=== PATIENT | male | born 1930 | race African-American/Black ===

== ENCOUNTER 2018-06-03 13:11 | Emergency (ER) | payer MEDICARE ==
[2018-06-03 14:11] LABS: #Lymphocytes 1.4 thou/uL (1.20-3.40); #Monocytes 0.7 thou/uL (0.11-0.59); #Neutrophils 5.1 thou/uL (1.40-6.50); %Basophils 0.3 % (0.0-1.0); %Eosinophils 0.5 % (0.0-10.0); %Lymphocytes 18.8 % (21.0-51.0); %Monocytes 10.1 % (0.0-10.0); %Neutrophils 70.3 % (42.0-75.0); Hemoglobin 13.3 g/dL (14.0-18.0); Mean Corpuscular HGB CONC 31.4 g/dL (32.0-36.0); Mean Corpuscular Hemoglobin 28.5 pg (27.0-31.0); Mean Corpuscular Volume 90.7 fL (78.0-98.0); Platelet Count 283 thou/uL (130-400); Red Blood Cell (RBC) Count 4.68 mill/uL (4.70-6.10); White Blood Cell (WBC) Count 7.2 thou/uL (4.8-10.8)
[2018-06-03 14:35] LABS: ALT (SGPT) 19 U/L (8-55); AST (SGOT) 20 U/L (5-34); Albumin 3.6 g/dL (3.4-4.8); Alkaline Phosphatase 104 U/L (40-150); Anion Gap 13 mmol/L (10-20); BUN (Urea Nitrogen) 26 mg/dL (8.4-25.7); Bilirubin, Total 0.3 mg/dL (0.2-1.2); CK (CPK) 58 U/L (30-200); Calc. Creatinine Clearance 0 mL/min (70-130); Calcium 9.8 mg/dL (7.8-10.44); Carbon Dioxide 26 mmol/L (23-31); Chloride 102 mmol/L (98-107); Estimated GFR-MDRD 39; Globulin 3.7 g/dL (2.4-3.5); Glucose 208 mg/dL (83-110); Lipase 11 U/L (8-78); Potassium 5.2 mmol/L (3.5-5.1); Protein, Total 7.3 g/dL (5.8-8.1); Sodium 136 mmol/L (136-145)
[2018-06-03 14:42] LABS: Bilirubin Negative (Negative); Blood, Urine Large (Negative); Clarity TURBID (Clear); Glucose, Urine (Dipstick) Negative (Negative); Leukocyte Large (Negative); Nitrite Positive (Negative); Protein, Urine (Dipstick) 300 mg/dL (Neg-Trace); Specific Gravity, Urine 1.015 (1.002-1.036); Urobilinogen 0.2 mg/dL (0.2-1.0)
[2018-06-03 14:43] LABS: Hyaline Casts/LPF 0-3 HYALINE CAST LPF (0-3 Hyaline); Pathc Cast-AUWi Flag 0.26 (0-2.49); RBC/HPF GREATER THAN 50-TNTC HPF (0-3); Squamous Epithelial 0-3 HPF (0-3)
[2018-06-03 14:53] LABS: Bacteria/HPF 4+ HPF (None Seen)
[2018-06-03] MEDS ORDERED: cefTRIAXone\\ROCEPHIN 2 GM VIAL ONE (15:27)
--- NOTE | 2018-06-03 15:50 | RAD ---
PORTABLE CHEST ONE VIEW: 06/03/18 at 1:35 p.m. HISTORY: Altered mental status. FINDINGS/IMPRESSION: The heart size is normal. The aorta is tortuous. Mild infiltrates are seen at the lung bases. This ca nnot be said with certainty if this is due to acute or chronic process. No pneumothoraces or large ef fusions are seen. POS: [facility]
--- NOTE | 2018-06-03 16:13 | CT ---
CT BRAIN NONCONTRAST: 06/03/18 HISTORY: 87-year-old male with altered mental status, nausea, and vomiting with lethargy. FINDINGS: There is no midline shift or any other mass effect. There is no evidence of acute intracranial hemor rhage, large cortical infarct, obstructive hydrocephalus, or extraaxial fluid collection. The calvar ium is intact. There is diffuse parenchymal volume loss. There are low attenuation areas in the whi te matter. These are nonspecific, but in a patient of this age, they are probably chronic ischemic w curt matter changes due to microvascular atherosclerosis. IMPRESSION: 1) No acute intracranial findings. 2) Involutional changes and chronic ischemic white matter changes. jn [] POS: [facility]
== END 2018-06-03 16:36 ==
LOC: ERS 13:11
DX: N30.00 Acute cystitis without hematuria (principal); E86.0 Dehydration; N40.0 Benign prostatic hyperplasia without lower urinary tract symptoms; I13.0 Hypertensive heart and chronic kidney disease with heart failure and stage 1 through stage 4 chronic kidney disease, or unspecified chronic kidney disease; N18.9 Chronic kidney disease, unspecified; I50.9 Heart failure, unspecified; E11.9 Type 2 diabetes mellitus without complications; K21.9 Gastro-esophageal reflux disease without esophagitis; Z79.899 Other long term (current) drug therapy; Z79.4 Long term (current) use of insulin
CPT/HCPCS: 36415; 51701; 70450; 71045; 80053; 81003; 81015; 82550; 83605; 83690; 84484; 85025; 87040; 87077; 87086; 87149; 87186; 93005; 94760; 96361; 96365; J0696

== ENCOUNTER 2019-08-09 14:45 | Inpatient (IN) | payer MEDICARE ==
[2019-08-09 16:11] LABS: #Eosinphils 0.3 thou/uL (0.0-0.7); #Lymphocytes 2.9 thou/uL (1.20-3.40); #Monocytes 1.2 thou/uL (0.11-0.59); #Neutrophils 5.3 thou/uL (1.40-6.50); %Basophils 0.1 % (0.0-1.0); %Eosinophils 2.8 % (0.0-10.0); %Lymphocytes 30.1 % (21.0-51.0); Hemoglobin 13.5 g/dL (14.0-18.0); Mean Corpuscular HGB CONC 31.6 g/dL (32.0-36.0); Mean Corpuscular Hemoglobin 29.4 pg (27.0-31.0); Mean Platelet Volume 8.4 fL (7.4-10.4); Platelet Count 282 thou/uL (130-400); Red Blood Cell (RBC) Count 4.59 mill/uL (4.70-6.10); White Blood Cell (WBC) Count 9.7 thou/uL (4.8-10.8)
[2019-08-09 16:26] LABS: ALT (SGPT) 16 U/L (8-55); AST (SGOT) 18 U/L (5-34); Albumin 3.7 g/dL (3.4-4.8); Alkaline Phosphatase 101 U/L (40-110); Anion Gap 16 mmol/L (10-20); BUN (Urea Nitrogen) 56 mg/dL (8.4-25.7); Bilirubin, Total 0.3 mg/dL (0.2-1.2); Calc. Creatinine Clearance 0 mL/min (70-130); Calcium 9.4 mg/dL (7.8-10.44); Carbon Dioxide 19 mmol/L (23-31); Chloride 109 mmol/L (98-107); Estimated GFR-MDRD 20; Globulin 3.6 g/dL (2.4-3.5); Glucose 235 mg/dL (83-110); Potassium 5.9 mmol/L (3.5-5.1); Protein, Total 7.3 g/dL (5.8-8.1); Sodium 138 mmol/L (136-145)
[2019-08-09 17:20] LABS: Bacteria/HPF 2+ HPF (None Seen); Bilirubin Negative (Negative); Blood, Urine 3+ (Negative); Clarity Turbid (Clear); Glucose, Urine (Dipstick) Normal (Negative); Leukocyte 500 Leu/uL (Negative); Nitrite Negative (Negative); Protein, Urine (Dipstick) 100 mg/dL (Neg-Trace); RBC/HPF Greater than 50 HPF (0-3); Squamous Epithelial None Seen HPF (0-3); Urobilinogen Normal mg/dL (Less than 2); WBC/HPF Greater than 50 HPF (0-3)
[2019-08-09] MEDS ORDERED: cefTRIAXone\\ROCEPHIN 1 GM VIAL ONE (17:46)
[2019-08-09] MEDS ORDERED: Acetaminophen 325 MG TAB PO PRN ×2 (18:26→23:55)
[2019-08-09] MEDS ORDERED: Sodium Chloride 0.9% 1,000 ML IV SCH ×2 (18:30→18:45)
[2019-08-09] MEDS ORDERED: HumaLOG 300 UNITS/3 ML VIAL SC PRN (18:36)
[2019-08-09] MEDS ORDERED: Dextrose 50% Abboject 50 ML SYRINGE SLOW IVP PRN (18:36)
[2019-08-09] MEDS ORDERED: Dextrose 5% in Water 1,000 ML IV PRN (18:36)
--- NOTE | 2019-08-09 18:47 | PDOC.HHP ---
Hospitalist HPI - History of Present Illness Elevated Creatinine level History of Present Illness: PCP: Dr. Whiting Code status: DNR The patient is a resident at the [facility] The patient is an 88/M with PMH significant for CKD, BPH, DM, HTN, HLD, CHF that presents to the ER for the above complaint. Recently, the patient has been treated for elevated potassium and creatinine levels, potassium of 8.2 and creatinine of 3.38 yesterday, then this morning the potassium improved to 6.8 but the creatinine worsened to 3.69, so the patient was sent to the hospital for further evaluation. The patient denies any chest pain or heart palpitations. Denies any abdominal pain, nausea or vomiting at this time. Denies any fever or chills. ED Course: VS T 98.4F, BP 131/57, HR 95, RR 16, spo2 100% RA EKG ST RBB no significant T wave changes K 5.9 creatinine 3.49 UA elevated WBCs, leukocytes and 2+ bacteria Given: EMS gave 300mls IV NS 2L NS rocephin 1gm IVPB Hospitalist ROS - Review of Systems Constitutional: denies: fever, chills, sweats, weakness, malaise, other Eyes: denies: pain, vision change, conjunctivae inflammation, eyelid inflammation, redness, other ENT: denies: ear pain, ear discharge, nose pain, nose discharge, nose congestion , mouth pain, mouth swelling, throat pain, throat swelling, other Respiratory: denies: cough, dry, shortness of breath, hemoptysis, SOB with excertion, pleuritic pain, sputum, wheezing, other Cardiovascular: denies: chest pain, palpitations, orthopnea, paroxysmal noc. dyspnea, edema, light headedness, other Gastrointestinal: denies: nausea, vomiting, abdominal pain, diarrhea, constipation, melena, hematochezia, other Genitourinary: denies: dysuria, frequency, incontinence, hematuria, retention, other Neurological: denies: weakness, numbness, incoordination, change in speech, confusion, seizures, other Hospitalist History - Past Medical History Source: patient, old records Cardiac: reports: CHF, HTN, Hyperlipidemia Gastrointestinal: reports: GERD Renal/: reports: Chronic renal insuff, Benign prostatic enlarg. Endocrine: reports: Diabetes - Past Surgical History Past Surgical History: reports: Other (colostomy from bowel obstruction) - Family History Family History: reports: no pertinent history (non contributory for kidney disease) - Social History Smoking Status: Never smoker Alcohol: reports: None Drugs: reports: none Living Situation: Residential Occupation: Retired, [place] resident Activity level: wheelchair bound Other Social History: Transfers with minimal assistance per patient - Exam General Appearance: NAD, awake alert Eye: anicteric sclera ENT: normocephalic atraumatic Neck: no JVD, no lymphadenopathy Heart: RRR, no gallops, no rubs, normal peripheral pulses, II/IV Respiratory: CTAB, no wheezes, no rales, no ronchi Gastrointestinal: soft, non-tender, non-distended, normal bowel sounds, no guarding, no rigidity Extremities: no cyanosis, no edema Skin: no rashes Neurological: no focal deficits Psychiatric: normal affect, A&O x 3 Hospitalist Results - Labs Result Diagrams: 08/09/19 15:55 08/09/19 15:55 Lab results: WBC 9.7 thou/uL (4.8-10.8) 08/09/19 15:55 Hgb 13.5 g/dL (14.0-18.0) L 08/09/19 15:55 Hct 42.6 % (42.0-52.0) 08/09/19 15:55 MCV 93.0 fL (78.0-98.0) 08/09/19 15:55 Plt Count 282 thou/uL (130-400) 08/09/19 15:55 Neutrophils % 55.0 % (42.0-75.0) 08/09/19 15:55 Sodium 138 mmol/L (136-145) 08/09/19 15:55 Potassium 5.9 mmol/L (3.5-5.1) H 08/09/19 15:55 Chloride 109 mmol/L (98-107) H 08/09/19 15:55 Carbon Dioxide 19 mmol/L (23-31) L 08/09/19 15:55 BUN 56 mg/dL (8.4-25.7) H 08/09/19 15:55 Creatinine 3.49 mg/dL (0.7-1.3) H 08/09/19 15:55 Glucose 235 mg/dL (83-110) H 08/09/19 15:55 Calcium 9.4 mg/dL (7.8-10.44) 08/09/19 15:55 Total Bilirubin 0.3 mg/dL (0.2-1.2) 08/09/19 15:55 AST 18 U/L (5-34) 08/09/19 15:55 ALT 16 U/L (8-55) 08/09/19 15:55 Alkaline Phosphatase 101 U/L (40-110) 08/09/19 15:55 Serum Total Protein 7.3 g/dL (5.8-8.1) 08/09/19 15:55 Albumin 3.7 g/dL (3.4-4.8) 08/09/19 15:55 Urine Ketones Negative mg/dL (Negative) 08/09/19 17:08 Urine Blood 3+ (Negative) A 08/09/19 17:08 Urine Nitrite Negative (Negative) 08/09/19 17:08 Ur Leukocyte Esterase 500 Mike/uL (Negative) A 08/09/19 17:08 Urine RBC Greater than 50 HPF (0-3) A 08/09/19 17:08 Urine WBC Greater than 50 HPF (0-3) A 08/09/19 17:08 Ur Squamous Epith Cells None Seen HPF (0-3) 08/09/19 17:08 Urine Bacteria 2+ HPF (None Seen) A 08/09/19 17:08 - EKG Interpretation EKG: sinus tachycardia Hospitalist H&P A/P - Problem (1) UTI (urinary tract infection) Status: Acute Assessment and Plan: Admit to medical floor, inpatient status Expected stay at least 2 midnights Continue Rocephin IVPB daily Urine culture pending Light IVF hydration (2) NIA (acute kidney injury) Code(s): N17.9 - ACUTE KIDNEY FAILURE, UNSPECIFIED Status: Acute Assessment and Plan: Creatine 1.67 and GFR 47 on 07/16 which appears to be baseline prior to recent events IVF hydration Repeat BMP in AM Obtain renal US Hold nephrotoxic medications Consult nephrology (3) CKD (chronic kidney disease) Code(s): N18.9 - CHRONIC KIDNEY DISEASE, UNSPECIFIED Status: Chronic Assessment and Plan: Creatine 1.67 and GFR 47 on 07/16 which appears to be baseline prior to recent events Currently GFR 20 IVF hydration will check BNP, troponins and CXR baseline (4) CHF (congestive heart failure) Code(s): I50.9 - HEART FAILURE, UNSPECIFIED Status: Chronic Assessment and Plan: No signs of FVO at this time Patient given 2L NS and another 300mls per EMS Will check BNP, troponins and CXR baseline (5) HTN (hypertension) Code(s): I10 - ESSENTIAL (PRIMARY) HYPERTENSION Status: Chronic Assessment and Plan: Will hold lisinopril Will restart coreg, amlodipine and ASA Will monitor blood pressure (6) HLD (hyperlipidemia) Code(s): E78.5 - HYPERLIPIDEMIA, UNSPECIFIED Status: Chronic Assessment and Plan: Will restart atorvastatin (7) Diabetes mellitus, type II Status: Chronic Assessment and Plan: Patient takes Novilin 70/30 16u evening and 26u in am Will place on moderate sliding scale Accuchecks AC/HS (8) BPH (benign prostatic hyperplasia) Code(s): N40.0 - BENIGN PROSTATIC HYPERPLASIA WITHOUT LOWER URINRY TRACT SYMP Status: Chronic (9) Glaucoma Code(s): H40.9 - UNSPECIFIED GLAUCOMA Status: Chronic Assessment and Plan: Will restart carteolol eye drops when home medications reconciled. (10) GERD (gastroesophageal reflux disease) Code(s): K21.9 - GASTRO-ESOPHAGEAL REFLUX DISEASE WITHOUT ESOPHAGITIS Status: Chronic Assessment and Plan: Will start protonix daily - Plan Plan: PPI prophylaxis SCDs prophylaxis DNR DPOA, Ursula Rios (daughter), at [phone] Galicia.
[2019-08-09 19:09] LABS: Troponin I Less than 0.010 ng/mL (< 0.028)
--- NOTE | 2019-08-09 19:17 | RAD ---
RADIOGRAPH CHEST 1 VIEW: DATE: 08/09/2019 TIME: 7:06 PM HISTORY: 88-year-old male with dyspnea COMPARISON: 06/03/2018 FINDINGS: Again noted are the coarse interstitial densities at the bilateral lower lung zones. These now appear to involve the mid lung zones also, but that appearance could be due to positional differences, with the current position lordotic. Magnification of cardiac shadow. No large consolidation or pneumo thorax. IMPRESSION: Interstitial densities at mid and lower lung zones, chronic versus acute. Favor chronic.
[2019-08-09] MEDS: Sodium Chloride 0.9% 1,000 ML IV SCH (20:50)
[2019-08-09 22:10] VITALS: BMI 31.1
[2019-08-09] MEDS ORDERED: Loperamide HCl 2 MG CAP PO PRN (23:55)
[2019-08-10] MEDS: Sodium Chloride 0.9% 1,000 ML IV SCH ×2 (05:11→16:57)
[2019-08-10 05:16] LABS: #Basophils 0.1 thou/uL (0.0-0.2); #Eosinphils 0.6 thou/uL (0.0-0.7); #Lymphocytes 2.6 thou/uL (1.20-3.40); #Monocytes 0.9 thou/uL (0.11-0.59); #Neutrophils 3.9 thou/uL (1.40-6.50); %Basophils 0.9 % (0.0-1.0); %Eosinophils 6.9 % (0.0-10.0); %Lymphocytes 32.6 % (21.0-51.0); %Monocytes 10.7 % (0.0-10.0); %Neutrophils 48.9 % (42.0-75.0); Hemoglobin 12.7 g/dL (14.0-18.0); Mean Corpuscular HGB CONC 31.3 g/dL (32.0-36.0); Mean Corpuscular Hemoglobin 29.3 pg (27.0-31.0); Mean Corpuscular Volume 93.5 fL (78.0-98.0); Mean Platelet Volume 8.5 fL (7.4-10.4); Platelet Count 240 thou/uL (130-400); Red Blood Cell (RBC) Count 4.34 mill/uL (4.70-6.10)
[2019-08-10 05:38] LABS: Anion Gap 14 mmol/L (10-20); BUN (Urea Nitrogen) 40 mg/dL (8.4-25.7); Calc. Creatinine Clearance 28 mL/min (70-130); Calcium 9.1 mg/dL (7.8-10.44); Carbon Dioxide 18 mmol/L (23-31); Chloride 114 mmol/L (98-107); Estimated GFR-MDRD 30; Glucose 169 mg/dL (83-110); Potassium 5.3 mmol/L (3.5-5.1); Sodium 141 mmol/L (136-145)
--- NOTE | 2019-08-10 08:04 | ULT ---
RENAL ULTRASOUND: COMPARISON: None. HISTORY: Elevated creatinine and hyperkalemia. TECHNIQUE: Multiplanar, enriquez scale, and color Doppler images were obtained in a renal ultrasound. FINDINGS: There are anechoic cysts in both kidneys. The largest measures 3.2 cm in size. There are echogenic calcifications of the right kidney measuring up to 1.8 cm in size. There is mild prominence of the right renal pelvis without calyceal dilatation. No left renal calcifications are seen. The kidneys measure 10.7 and 11.0 cm in length on the right and left, respectively. There appears to be a mass within the urinary bladder measuring 7.8 x 6.5 x 3.9 cm in size. IMPRESSION: 1. Bilateral renal cysts. 2. Nonobstructing right renal calcification. 3. Urinary bladder mass. POS: [facility]
[2019-08-10] MEDS ORDERED: Carvedilol 6.25 MG TAB PO SCH (09:00)
[2019-08-10] MEDS: Saccharomyces boulardii 250 MG CAP PO SCH ×2 (09:25→20:34)
[2019-08-10] MEDS: Carvedilol 3.125 MG TAB PO SCH ×2 (09:26→16:56)
[2019-08-10] MEDS: Magnesium Oxide 400 MG TAB PO SCH (09:26)
[2019-08-10] MEDS: Aspirin 81 mg Enteric Coated Tablet PO SCH (09:26)
[2019-08-10] MEDS: traMADol HCl 50 MG TAB PO SCH ×3 (09:26→20:34)
[2019-08-10] MEDS: Multivitamin W/ Minerals 1 TAB PO SCH (09:26)
[2019-08-10] MEDS: Timolol 0.25% Ophth Soln 5 ml Bottle EA EYE SCH ×2 (11:24→20:34)
[2019-08-10] MEDS ORDERED: Ferrous Gluconate 324 MG TAB PO SCH (17:00)
[2019-08-10] MEDS: HumaLOG 300 UNITS/3 ML VIAL SC PRN (17:12)
[2019-08-10] MEDS: cefTRIAXone\\ROCEPHIN 1 GM in Sodium Chloride 0.9% 100 ML IVPB SCH (17:18)
--- NOTE | 2019-08-10 17:25 | PDOC.HOSPP ---
- Subjective Encounter Date: 08/10/19 Encounter Time: 12:30 Subjective: Patient seen and examined for AMS/UTI/NIA. Mentation improving. No fever or chills. No new complaints. No overnight events - Objective Vital Signs & Weight: Vital Signs (12 hours) Temp Pulse Resp BP Pulse Ox 08/10/19 17:01 175/80 H 08/10/19 15:54 98.2 F 101 H 16 183/90 H 96 08/10/19 11:22 97.4 F L 99 16 143/70 H 93 L 08/10/19 08:00 96 08/10/19 07:36 98.3 F 92 16 137/76 96 Weight Weight 207 lb I&O: 08/09/19 08/10/19 08/11/19 06:59 06:59 06:59 Intake Total 1650 Output Total 950 Balance 700 Result Diagrams: 08/10/19 04:50 08/10/19 04:50 Additional Labs: Accuchecks 08/10/19 08/10/19 08/10/19 15:50 11:31 05:56 POC Glucose 211 H 196 H 164 H 08/09/19 20:52 POC Glucose 182 H Radiology Reviewed by me: Yes (CXR - no infiltrate) EKG Reviewed by me: Yes (SR) Hospitalist ROS - Review of Systems ROS unobtainable: due to mental status - Medication Medications: Active Medications Generic Name Dose Route Start Last Admin Trade Name Freq PRN Reason Stop Dose Admin Aspirin 81 mg 08/10/19 09:00 08/10/19 09:26 Ecotrin PO 81 mg DAILY BISI Administration Carvedilol 3.125 mg 08/10/19 08:00 08/10/19 16:56 Coreg PO 3.125 mg BID-WM BISI Administration Sodium Chloride 1,000 mls @ 100 mls/hr 08/09/19 18:45 08/10/19 16:57 Normal Saline 0.9% IV 1,000 mls .Q10H BISI Administration Ceftriaxone Sodium 1 gm/ 100 mls @ 200 mls/hr 08/10/19 18:00 08/10/19 17:18 Sodium Chloride IVPB 100 mls Q24HR BISI Administration Insulin Human Lispro 0 units 08/09/19 18:36 08/10/19 17:12 Humalog SC 4 unit .MODERATE SLIDING SC PRN Administration Moderate Correctional Scale Iron/Minerals/Multivitamins 1 tab 08/10/19 09:00 08/10/19 09:26 Theragran M PO 1 tab DAILY BISI Administration Magnesium Oxide 400 mg 08/10/19 09:00 08/10/19 09:26 Magnesium Oxide PO 400 mg DAILY BISI Administration Pantoprazole Sodium 40 mg 08/10/19 09:00 08/10/19 09:27 Protonix PO 40 mg DAILY BISI Administration Saccharomyces Boulardii 250 mg 08/10/19 09:00 08/10/19 09:25 Florastor PO 250 mg BID BISI Administration Timolol Maleate 1 drop 08/10/19 09:00 08/10/19 11:24 Timoptic 0.25% Ophth Soln EA EYE 1 drop BID BISI Administration Tramadol HCl 50 mg 08/10/19 09:00 08/10/19 16:56 Ultram PO Not Given TID BISI - Exam General Appearance: NAD Heart: RRR, no gallops, no rubs, normal peripheral pulses Respiratory: no wheezes, no rales, no ronchi, normal chest expansion Gastrointestinal: soft, non-tender, non-distended, normal bowel sounds Gastrointestinal - other findings: Colostomy + Extremities: no cyanosis, no clubbing Neurological: no new deficit Neurological - other findings: Neuro/Psych - cannot assess due to AMS Hosp A/P - Plan DVT proph w/SCDs Toxic Metabolic Encephalopathy - POA NIA/CKD 4/Hyperkalemia UTI GERD Obesity BMI 31.5 Bladder mass HTN HLD DM2 Glaucoma PLAN: Cont IVF ACEI on hold Renal USG reviewed No further w/u for bladder mass per family and Dr Araiza Cont IV Ceftriaxone AM labs Cont other meds as above PT/OT DNR
[2019-08-10] MEDS: Sodium Bicarbonate Tab 325 MG TAB PO SCH (20:34)
[2019-08-10] MEDS: Atorvastatin Calcium 40 MG TAB PO SCH (20:34)
[2019-08-11] MEDS: Sodium Chloride 0.9% 1,000 ML IV SCH ×2 (01:55→11:16)
[2019-08-11] MEDS ORDERED: hydrOXYzine 25 MG TAB PO SCH (02:00)
[2019-08-11 06:00] LABS: #Basophils 0.1 thou/uL (0.0-0.2); #Eosinphils 0.3 thou/uL (0.0-0.7); #Lymphocytes 2.7 thou/uL (1.20-3.40); #Monocytes 0.8 thou/uL (0.11-0.59); #Neutrophils 2.8 thou/uL (1.40-6.50); %Basophils 0.8 % (0.0-1.0); %Eosinophils 4.9 % (0.0-10.0); %Lymphocytes 40.2 % (21.0-51.0); %Monocytes 12.3 % (0.0-10.0); %Neutrophils 41.8 % (42.0-75.0); Mean Corpuscular Hemoglobin 28.9 pg (27.0-31.0); Mean Corpuscular Volume 93.2 fL (78.0-98.0); Mean Platelet Volume 8.2 fL (7.4-10.4); Platelet Count 259 thou/uL (130-400); RBC Distribution Width 12.8 % (11.5-14.5); Red Blood Cell (RBC) Count 3.82 mill/uL (4.70-6.10); White Blood Cell (WBC) Count 6.7 thou/uL (4.8-10.8)
[2019-08-11 06:21] LABS: ALT (SGPT) 16 U/L (8-55); AST (SGOT) 19 U/L (5-34); Albumin 3.4 g/dL (3.4-4.8); Alkaline Phosphatase 95 U/L (40-110); Anion Gap 11 mmol/L (10-20); BUN (Urea Nitrogen) 19 mg/dL (8.4-25.7); Bilirubin, Total 0.5 mg/dL (0.2-1.2); Calc. Creatinine Clearance 43 mL/min (70-130); Carbon Dioxide 22 mmol/L (23-31); Chloride 110 mmol/L (98-107); Estimated GFR-MDRD 49; Globulin 3.2 g/dL (2.4-3.5); Glucose 161 mg/dL (83-110); Potassium 4.5 mmol/L (3.5-5.1); Protein, Total 6.6 g/dL (5.8-8.1); Sodium 138 mmol/L (136-145)
[2019-08-11] MEDS: Saccharomyces boulardii 250 MG CAP PO SCH ×2 (07:52→20:09)
[2019-08-11] MEDS: Multivitamin W/ Minerals 1 TAB PO SCH (07:52)
[2019-08-11] MEDS: Aspirin 81 mg Enteric Coated Tablet PO SCH (07:52)
[2019-08-11] MEDS: traMADol HCl 50 MG TAB PO SCH ×3 (07:52→20:09)
[2019-08-11] MEDS: Sodium Bicarbonate Tab 325 MG TAB PO SCH ×2 (07:52→20:09)
[2019-08-11] MEDS: Magnesium Oxide 400 MG TAB PO SCH (07:52)
[2019-08-11] MEDS: Carvedilol 3.125 MG TAB PO SCH ×2 (07:52→17:06)
[2019-08-11] MEDS: Timolol 0.25% Ophth Soln 5 ml Bottle EA EYE SCH ×2 (07:53→20:09)
[2019-08-11] MEDS: Polyethylene Glycol 3350 17 GM Packet PO SCH (07:53)
[2019-08-11 09:14] LABS: Magnesium 1.4 mg/dL (1.6-2.6); Phosphorus 2.6 mg/dL (2.3-4.7)
[2019-08-11] MEDS ORDERED: Magnesium Sulfate 4 GM in Sodium Chloride 0.9% 250 ML 250 ML IVPB SCH (10:45)
[2019-08-11] MEDS: cefTRIAXone\\ROCEPHIN 1 GM in Sodium Chloride 0.9% 100 ML IVPB SCH (17:05)
[2019-08-11] MEDS: HumaLOG 300 UNITS/3 ML VIAL SC PRN (17:06)
--- NOTE | 2019-08-11 18:26 | PDOC.HOSPP ---
- Subjective Encounter Date: 08/11/19 Encounter Time: 16:00 Subjective: Patient seen and examined for AMS. Mentation improving. No fever/chills. No new complaints. No overnight events - Objective Vital Signs & Weight: Vital Signs (12 hours) Temp Pulse Resp BP Pulse Ox 08/11/19 12:00 98.3 F 88 18 154/80 H 96 08/11/19 08:00 98.2 F 87 18 147/78 H 96 Weight Weight 207 lb 11.2 oz I&O: 08/10/19 08/11/19 08/12/19 06:59 06:59 06:59 Intake Total 1650 3720 Output Total 950 100 Balance 700 3620 Result Diagrams: 08/11/19 05:50 08/11/19 05:50 Additional Labs: Accuchecks 08/11/19 08/11/19 08/10/19 16:36 11:37 19:47 POC Glucose 186 H 212 H 177 H Microbiology 08/08/19 16:15 Urine voided Urine Culture - Preliminary Presumptive Proteus mirabilis Enterococcus faecalis Laboratory Tests 08/11/19 05:50 Magnesium 1.4 L Radiology Reviewed by me: Yes (Renal USG - reviewed) Hospitalist ROS - Review of Systems Respiratory: denies: cough, dry, shortness of breath, hemoptysis, SOB with excertion, pleuritic pain, sputum, wheezing, other Cardiovascular: denies: chest pain, palpitations, orthopnea, paroxysmal noc. dyspnea, edema, light headedness, other - Medication Medications: Active Medications Generic Name Dose Route Start Last Admin Trade Name Freq PRN Reason Stop Dose Admin Aspirin 81 mg 08/10/19 09:00 08/11/19 07:52 Ecotrin PO 81 mg DAILY BISI Administration Atorvastatin Calcium 40 mg 08/10/19 21:00 08/10/19 20:34 Lipitor PO 40 mg HS BISI Administration Carvedilol 3.125 mg 08/10/19 08:00 08/11/19 17:06 Coreg PO 3.125 mg BID-WM BISI Administration Ceftriaxone Sodium 1 gm/ 100 mls @ 200 mls/hr 08/10/19 18:00 08/11/19 17:05 Sodium Chloride IVPB 100 mls Q24HR BISI Administration Insulin Human Lispro 0 units 08/09/19 18:36 08/11/19 17:06 Humalog SC 2 unit .MODERATE SLIDING SC PRN Administration Moderate Correctional Scale Iron/Minerals/Multivitamins 1 tab 08/10/19 09:00 08/11/19 07:52 Theragran M PO 1 tab DAILY BISI Administration Magnesium Oxide 400 mg 08/10/19 09:00 08/11/19 07:52 Magnesium Oxide PO 400 mg DAILY BIIS Administration Pantoprazole Sodium 40 mg 08/10/19 09:00 08/11/19 07:54 Protonix PO 40 mg DAILY BISI Administration Polyethylene Glycol 17 gm 08/11/19 09:00 08/11/19 07:53 Miralax PO 17 gm Q2DAYS BISI Administration Saccharomyces Boulardii 250 mg 08/10/19 09:00 08/11/19 07:52 Florastor PO 250 mg BID BISI Administration Sodium Bicarbonate 325 mg 08/10/19 21:00 08/11/19 07:52 Bicarbonate, Sodium PO 325 mg BID BISI Administration Timolol Maleate 1 drop 08/10/19 09:00 08/11/19 07:53 Timoptic 0.25% Ophth Soln EA EYE 1 drop BID BISI Administration Tramadol HCl 50 mg 08/10/19 09:00 08/11/19 15:08 Ultram PO Not Given TID BISI - Exam General Appearance: NAD Neck: supple, no JVD Heart: RRR, no gallops, no rubs Respiratory: no rales, no ronchi, normal chest expansion Gastrointestinal: soft, non-tender, non-distended, normal bowel sounds Extremities: no cyanosis, no clubbing Hosp A/P - Plan DVT proph w/SCDs Toxic Metabolic Encephalopathy NIA/CKD 4/Hyperkalemia Proteus UTI Hypomagnesemia GERD Obesity BMI 31.5 Bladder mass HTN HLD DM2 Glaucoma PLAN: DC IVF Replace Magnessium Cont IV Ceftriaxone ACEI on hold due to NIA Renal USG reviewed AM labs Cont other meds as above DNR No further w/u for bladder mass per family and Dr Araiza Await cultures
[2019-08-11] MEDS: Atorvastatin Calcium 40 MG TAB PO SCH (20:09)
[2019-08-12 06:02] LABS: #Eosinphils 0.2 thou/uL (0.0-0.7); #Lymphocytes 2.4 thou/uL (1.20-3.40); #Monocytes 0.7 thou/uL (0.11-0.59); %Basophils 0.3 % (0.0-1.0); %Eosinophils 3.7 % (0.0-10.0); %Lymphocytes 37.9 % (21.0-51.0); %Monocytes 10.7 % (0.0-10.0); %Neutrophils 47.4 % (42.0-75.0); Hemoglobin 11.6 g/dL (14.0-18.0); Mean Corpuscular HGB CONC 31.8 g/dL (32.0-36.0); Mean Corpuscular Hemoglobin 29.7 pg (27.0-31.0); Mean Corpuscular Volume 93.3 fL (78.0-98.0); Mean Platelet Volume 8.4 fL (7.4-10.4); Platelet Count 240 thou/uL (130-400); RBC Distribution Width 12.8 % (11.5-14.5); Red Blood Cell (RBC) Count 3.91 mill/uL (4.70-6.10); White Blood Cell (WBC) Count 6.4 thou/uL (4.8-10.8)
[2019-08-12 06:27] LABS: ALT (SGPT) 16 U/L (8-55); AST (SGOT) 20 U/L (5-34); Albumin 3.4 g/dL (3.4-4.8); Alkaline Phosphatase 92 U/L (40-110); Anion Gap 12 mmol/L (10-20); BUN (Urea Nitrogen) 12 mg/dL (8.4-25.7); Bilirubin, Total 0.4 mg/dL (0.2-1.2); Calc. Creatinine Clearance 55 mL/min (70-130); Carbon Dioxide 22 mmol/L (23-31); Chloride 109 mmol/L (98-107); Estimated GFR-MDRD 64; Globulin 3.2 g/dL (2.4-3.5); Glucose 157 mg/dL (83-110); Magnesium 1.7 mg/dL (1.6-2.6); Potassium 3.9 mmol/L (3.5-5.1); Protein, Total 6.6 g/dL (5.8-8.1); Sodium 139 mmol/L (136-145)
[2019-08-12] MEDS ORDERED: Magnesium Sulfate 2 GM in Sodium Chloride 0.9% 100 ML IVPB SCH (07:45)
[2019-08-12] MEDS ORDERED: Magnesium 2 GM/50 ML 2 GM in Premix Bag 1 BAG IVPB SCH (08:00)
[2019-08-12] MEDS: Magnesium Oxide 400 MG TAB PO SCH (08:08)
[2019-08-12] MEDS: Saccharomyces boulardii 250 MG CAP PO SCH ×2 (08:08→22:19)
[2019-08-12] MEDS: traMADol HCl 50 MG TAB PO SCH ×3 (08:08→22:22)
[2019-08-12] MEDS: Sodium Bicarbonate Tab 325 MG TAB PO SCH ×2 (08:08→22:19)
[2019-08-12] MEDS: Multivitamin W/ Minerals 1 TAB PO SCH (08:08)
[2019-08-12] MEDS: Aspirin 81 mg Enteric Coated Tablet PO SCH (08:09)
[2019-08-12] MEDS: Carvedilol 3.125 MG TAB PO SCH ×2 (08:09→16:29)
[2019-08-12] MEDS: Timolol 0.25% Ophth Soln 5 ml Bottle EA EYE SCH ×2 (08:09→22:21)
[2019-08-12] MEDS: cefTRIAXone\\ROCEPHIN 1 GM in Sodium Chloride 0.9% 100 ML IVPB SCH (17:11)
[2019-08-12] MEDS: HumaLOG 300 UNITS/3 ML VIAL SC PRN (17:11)
--- NOTE | 2019-08-12 19:55 | PDOC.HOSPP ---
- Subjective Encounter Date: 08/12/19 Encounter Time: 11:00 Subjective: Patient seen and examined for AMS/UTI. No CP or SOB. No new complaints. No overnight events - Objective Vital Signs & Weight: Vital Signs (12 hours) Temp Pulse Resp BP Pulse Ox 08/12/19 19:22 98.7 F 74 18 144/82 H 95 08/12/19 08:00 94 L Weight Weight 212 lb I&O: 08/11/19 08/12/19 08/13/19 06:59 06:59 06:59 Intake Total 3720 1030 Output Total 100 50 Balance 3620 980 Result Diagrams: 08/12/19 05:32 08/12/19 05:32 Additional Labs: Accuchecks 08/12/19 08/12/19 08/12/19 16:47 12:26 03:57 POC Glucose 283 H 202 H 146 H 08/12/19 08/11/19 08/11/19 00:32 19:12 04:41 POC Glucose 174 H 188 H 160 H Hospitalist ROS - Review of Systems Respiratory: denies: cough, dry, shortness of breath, hemoptysis, SOB with excertion, pleuritic pain, sputum, wheezing, other Cardiovascular: denies: chest pain, palpitations, orthopnea, paroxysmal noc. dyspnea, edema, light headedness, other Gastrointestinal: denies: nausea, vomiting, abdominal pain, diarrhea, constipation, melena, hematochezia, other - Medication Medications: Active Medications Generic Name Dose Route Start Last Admin Trade Name Freq PRN Reason Stop Dose Admin Aspirin 81 mg 08/10/19 09:00 08/12/19 08:09 Ecotrin PO 81 mg DAILY BISI Administration Atorvastatin Calcium 40 mg 08/10/19 21:00 08/11/19 20:09 Lipitor PO 40 mg HS BISI Administration Carvedilol 3.125 mg 08/10/19 08:00 08/12/19 16:29 Coreg PO 3.125 mg BID-WM BISI Administration Ceftriaxone Sodium 1 gm/ 100 mls @ 200 mls/hr 08/10/19 18:00 08/12/19 17:11 Sodium Chloride IVPB 100 mls Q24HR BISI Administration Insulin Human Lispro 0 units 08/09/19 18:36 08/12/19 17:11 Humalog SC 6 unit .MODERATE SLIDING SC PRN Administration Moderate Correctional Scale Iron/Minerals/Multivitamins 1 tab 08/10/19 09:00 08/12/19 08:08 Theragran M PO 1 tab DAILY BISI Administration Magnesium Oxide 400 mg 08/10/19 09:00 08/12/19 08:08 Magnesium Oxide PO 400 mg DAILY BISI Administration Pantoprazole Sodium 40 mg 08/10/19 09:00 08/12/19 08:08 Protonix PO 40 mg DAILY BISI Administration Polyethylene Glycol 17 gm 08/11/19 09:00 08/11/19 07:53 Miralax PO 17 gm Q2DAYS BISI Administration Saccharomyces Boulardii 250 mg 08/10/19 09:00 08/12/19 08:08 Florastor PO 250 mg BID BISI Administration Sodium Bicarbonate 325 mg 08/10/19 21:00 08/12/19 08:08 Bicarbonate, Sodium PO 325 mg BID BISI Administration Timolol Maleate 1 drop 08/10/19 09:00 08/12/19 08:09 Timoptic 0.25% Ophth Soln EA EYE 1 drop BID BISI Administration Tramadol HCl 50 mg 08/10/19 09:00 08/12/19 16:01 Ultram PO Not Given TID BISI - Exam General Appearance: NAD Neck: supple, no JVD Heart: RRR, no gallops Respiratory: no wheezes, no ronchi Gastrointestinal: non-tender, non-distended, normal bowel sounds Extremities: no cyanosis Hosp A/P - Plan DVT proph w/SCDs Toxic Metabolic Encephalopathy - improving NIA/CKD 4/Hyperkalemia Proteus UTI Hypomagnesemia GERD Obesity BMI 31.5 Bladder mass HTN HLD DM2 Glaucoma PLAN: Cont IV Ceftriaxone Replace Magnessium - 2 gm today ACEI on hold due to NIA DNR No further w/u for bladder mass per family and Dr Araiza Cont other meds as above AM labs
[2019-08-12] MEDS: Atorvastatin Calcium 40 MG TAB PO SCH (22:19)
[2019-08-13] MEDS: HumaLOG 300 UNITS/3 ML VIAL SC PRN ×2 (06:07→11:00)
[2019-08-13] MEDS: Aspirin 81 mg Enteric Coated Tablet PO SCH (07:46)
[2019-08-13] MEDS: Timolol 0.25% Ophth Soln 5 ml Bottle EA EYE SCH (07:46)
[2019-08-13] MEDS: Polyethylene Glycol 3350 17 GM Packet PO SCH (07:46)
[2019-08-13] MEDS: Saccharomyces boulardii 250 MG CAP PO SCH (07:46)
[2019-08-13] MEDS: Sodium Bicarbonate Tab 325 MG TAB PO SCH (07:46)
[2019-08-13] MEDS: Carvedilol 3.125 MG TAB PO SCH (07:46)
[2019-08-13] MEDS: Multivitamin W/ Minerals 1 TAB PO SCH (07:46)
[2019-08-13] MEDS: Magnesium Oxide 400 MG TAB PO SCH (07:46)
[2019-08-13] MEDS ORDERED: cefTRIAXone\\ROCEPHIN 1 GM in Sodium Chloride 0.9% 100 ML IVPB SCH (09:15)
[2019-08-13] MEDS: traMADol HCl 50 MG TAB PO SCH (10:01)
[2019-08-13 11:42] VITALS: BP 149/86; TEMP 98.3
--- NOTE | 2019-08-13 13:04 | DIS ---
DATE OF ADMISSION: 08/09/2019 DATE OF DISCHARGE: 08/13/2019 DISCHARGE DISPOSITION: Elysia Brown. FOLLOWUP: Follow up with Dr. Whiting at the facility. CODE STATUS: Do not resuscitate. Patient was seen and examined on the day of discharge. Denies any new complaints. No chest pain, shortness of breath, palpitations reported. DISCHARGE MEDICATIONS: 1. Omnicef 300 mg twice daily for 3 more dose. 2. Carvedilol 3.125 mg b.i.d. 3. Lidocaine patch as needed. 4. Lisinopril and potassium were discontinued. 5. All other home medications were left unchanged. BRIEF HOSPITAL COURSE: The patient is an 88-year-old male, currently residing at the longterm with benign prostatic hypertrophy and CKD, was transferred to this facility with abnormal labs. He was found to have potassium of 8.2 with a maximum creatinine of 3.69. Please refer to the history and physical for further details. The patient was admitted to the medical floor with a diagnosis of acute kidney injury along with hyperkalemia. He showed good improvement with IV fluids. Potassium and lisinopril have been discontinued. His workup was also consistent with Proteus UTI. Renal ultrasound showed nonobstructing right renal calcification with bilateral renal cysts and urinary bladder mass measuring 7.8 x 6.5 x 3.9 cm. I discussed with Dr. Araiza, Urology, who recommended outpatient followup. He also recommended not to treat the UTIs unless the patient develops symptoms. He appears stable for discharge. His creatinine at discharge is 1.29 with a potassium of 3.9. Repeat basic metabolic profile after 1 week is recommended. Primary care physician advised to follow. FINAL DIAGNOSES: 1. Toxic metabolic encephalopathy, multifactorial. 2. 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 3. Hyperkalemia. 4. Proteus urinary tract infection. 5. Bladder mass. 6. Hypomagnesemia, replaced. 7. Gastroesophageal reflux disease. 8. Obesity with a BMI of 31.5. 9. Hypertension. 10. Hyperlipidemia. 11. Diabetes mellitus type 2. 12. Glaucoma. 13. The patient understands the above plan of care. Time coordinating the discharge of this patient was 35 minutes. I also discussed the plan of care with the family over the phone. Job ID: [id number]
--- NOTE | 2019-08-15 03:07 | PQF ---
VENANCIO PETERS MALIK MD [id number] CLINICAL DOCUMENTATION CLARIFICATION FORM: POST DISCHARGE Addendum to original discharge summary date: ____ Late entry note date: __ DATE: 08/15/2019 ATTN: Dejon Eller Please exercise your independent, professional judgment in responding to the clarification form. Clinical indicators are provided on the bottom of this form for your review Please check appropriate box(es): [ x ] Sepsis - suspected [ ] SIRS due to non-infectious process (please specify etiology) [ ] with organ dysfunction [ ] without organ dysfunction [ ] Severe sepsis with acute organ dysfunction of: (Examples: respiratory failure, encephalopathy, acute kidney failure, other) [ ] Septic Shock [ ] Localized infection without sepsis [ ] Other diagnosis [ ] Unable to determine In addition, please specify: Present on Admission (POA): [x ] Yes [ ] No [ ] Unable to determine For continuity of documentation, please document condition throughout progress notes and discharge summary. Thank You. CLINICAL INDICATORS - SIGNS / SYMPTOMS / LABS HP 08/08 "Urinary tract infection" HP 08/08 "Acute kidney injury" PN 08/09 "patient seen and examined for AMS/UTI/NIA" PN 08/09 "Toxic metabolic encephalopathy" Vital Signs Pulse: [id number]/0847=[id number] 08/0926=197,105 Labs WBC: 08/10=6.7 Labs Anion Gap: 08/08=16 08/09=14 08/10=11 08/11=12 RISK FACTORS ED Notes 08/08-88 years old male ED Notes 08/08-DM ED Notes 08/08-CKD HP 08/08-CHF HP 08/08-UTI PN 08/09-Obesity TREATMENTS: HP 08/08-Urine culture HP 08/08-IVF MAR 08/08-Rocephin 1gm IV (This form is maintained as a part of the permanent medical record) 2014 [employer]. All Rights Reserved Paulina [email or web address] [phone] CALE
--- NOTE | 2019-08-15 13:52 | EKG ---
Test Reason : Blood Pressure : / mmHG Vent. Rate : 102 BPM Atrial Rate : 102 BPM P-R Int : 190 ms QRS Dur : 098 ms QT Int : 344 ms P-R-T Axes : 045 -52 063 degrees QTc Int : 448 ms Sinus tachycardia Incomplete right bundle branch block Left anterior fascicular block Septal infarct , age undetermined Abnormal ECG Confirmed by VIOLETTE DE LEON DO ([id number]), editor book CINDY VU ([id number]) on 08/15/2019 1:52:15 PM Referred By: Confirmed By:VIOLETTE DE LEON DO
== END 2019-08-13 12:11 | DRG 871 ==
LOC: ERS 14:45 → T4-A 18:45
PROVIDERS: ADMIT Internal Medicine; ATTEND Internal Medicine
DX: A41.9 Sepsis, unspecified organism (principal); G92 Toxic encephalopathy; N17.9 Acute kidney failure, unspecified; I13.0 Hypertensive heart and chronic kidney disease with heart failure and stage 1 through stage 4 chronic kidney disease, or unspecified chronic kidney disease; N39.0 Urinary tract infection, site not specified; N18.4 Chronic kidney disease, stage 4 (severe); Z66 Do not resuscitate; E87.5 Hyperkalemia; N40.0 Benign prostatic hyperplasia without lower urinary tract symptoms; I50.9 Heart failure, unspecified; E78.00 Pure hypercholesterolemia, unspecified; N47.1 Phimosis; E11.22 Type 2 diabetes mellitus with diabetic chronic kidney disease; H40.9 Unspecified glaucoma; K21.9 Gastro-esophageal reflux disease without esophagitis; E78.5 Hyperlipidemia, unspecified; E66.9 Obesity, unspecified; N32.89 Other specified disorders of bladder; B96.4 Proteus (mirabilis) (morganii) as the cause of diseases classified elsewhere; E83.42 Hypomagnesemia; N28.1 Cyst of kidney, acquired; Z93.3 Colostomy status; Z88.8 Allergy status to other drugs, medicaments and biological substances; Z91.013 Allergy to seafood; Z79.82 Long term (current) use of aspirin; Z79.4 Long term (current) use of insulin; Z79.899 Other long term (current) drug therapy; Z68.31 Body mass index [BMI] 31.0-31.9, adult
CPT/HCPCS: 36415; 36416; 51701; 71045; 76770; 80048; 80053; 81003; 81015; 83735; 83880; 84100; 84484; 85025; 85027; 87077; 87086; 87186; 93005; 96361; 96365; J0696; J3475; J3490; J7050

== ENCOUNTER 2020-05-25 03:17 | Emergency (ER) | payer MEDICARE ==
[2020-05-25 04:15] LABS: Bilirubin Small (Negative); Blood, Urine Large (Negative); Glucose, Urine (Dipstick) Negative (Negative); Ketone, Urine Trace mg/dL (Negative); Leukocyte Moderate (Negative); Nitrite Negative (Negative); Protein, Urine (Dipstick) > or equal to 300 mg/dL (Neg-Trace); Urobilinogen 0.2 mg/dL (Less than 2)
[2020-05-25 04:20] LABS: Clarity Turbid (Clear)
[2020-05-25 04:26] LABS: Bacteria/HPF 3+ HPF (None Seen); RBC/HPF Greater than 50 HPF (0-3); Squamous Epithelial None Seen HPF (0-3); WBC/HPF Greater than 50 HPF (0-3)
== END 2020-05-25 05:25 ==
LOC: ERS 03:17
DX: R31.9 Hematuria, unspecified (principal); N40.0 Benign prostatic hyperplasia without lower urinary tract symptoms; I13.0 Hypertensive heart and chronic kidney disease with heart failure and stage 1 through stage 4 chronic kidney disease, or unspecified chronic kidney disease; I50.9 Heart failure, unspecified; N18.9 Chronic kidney disease, unspecified; E11.22 Type 2 diabetes mellitus with diabetic chronic kidney disease; E11.39 Type 2 diabetes mellitus with other diabetic ophthalmic complication; H42 Glaucoma in diseases classified elsewhere; E78.00 Pure hypercholesterolemia, unspecified; E83.42 Hypomagnesemia; E66.9 Obesity, unspecified; M19.90 Unspecified osteoarthritis, unspecified site; E78.5 Hyperlipidemia, unspecified; Z86.73 Personal history of transient ischemic attack (TIA), and cerebral infarction without residual deficits; Z79.4 Long term (current) use of insulin; Z79.899 Other long term (current) drug therapy; Z87.891 Personal history of nicotine dependence
CPT/HCPCS: 81003; 81015; 87077; 87086; 87186; 99284